=== PATIENT | female | born 1990 | race Hispanic/Latino ===

== ENCOUNTER 2018-10-22 11:42 | Inpatient (IN) | payer OTHER ==
[~2018-10-22] VITALS: Ht 157.5 cm; Wt 83.0 kg
[2018-10-22] MEDS ORDERED: LACTATED RINGERS 1000ML 1,000 ML IV SCH (12:15)
[2018-10-22] MEDS ORDERED: CEFAZOLIN SODIUM 1 GM VIAL IVP PRN (12:15)
[2018-10-22] MEDS ORDERED: CALDOLOR 800MG+NS 250ML 250 ML IV PRN (12:15)
[2018-10-22 12:24] LABS: HEMATOCRIT 36.1 % (36-48); MEAN CORPUSCULAR HEMOGLOBIN 30.1 pg (27.0-33.0); MEAN CORPUSCULAR HGB CONC 34.3 g/dL (32.0-36.0); MEAN CORPUSCULAR VOLUME 87.8 fL (79-99); PLATELET COUNT (AUTO) 211 K/uL (130-400); RED BLOOD CELL COUNT(AUTO) 4.12 MIL/uL (4.00-5.50); RED CELL DISTRIBUTION WIDTH 13.8 % (11.0-15.5); WHITE BLOOD COUNT (AUTO) 6.8 K/uL (4.8-10.8)
[2018-10-22] MEDS ORDERED: DURAMORPH PF1 MG/ML 10ML AMP IV ONE (12:46)
[2018-10-22] MEDS ORDERED: ONDANSETRON HCL 4 MG/2 ML VIAL ONE (13:13)
[2018-10-22] MEDS ORDERED: CEFAZOLIN SODIUM 1 GM VIAL IVP ONE (13:20)
[2018-10-22] MEDS ORDERED: EPINEPHRINE 1 MG/ML AMPULE ONE (13:22)
[2018-10-22] MEDS ORDERED: MIDAZOLAM HCL 1 MG/ML 2ML VIAL ONE (13:23)
[2018-10-22] MEDS ORDERED: EPHEDRINE SULFATE 50 MG/ML AMPULE ONE (13:32)
[2018-10-22] MEDS ORDERED: OXYTOCIN-LR 20 UNITS/1000 ML 1,000 ML IV PRN (13:48)
[2018-10-22] MEDS ORDERED: PROMETHAZINE HCL 25 MG/ML 1ML AMPULE IM PRN ×2 (14:00→17:30)
[2018-10-22] MEDS ORDERED: DEXTROSE 5 %-0.45 % NACL 1,000 ML IV PRN (14:00)
[2018-10-22] MEDS ORDERED: SODIUM CHLORIDE 0.9% 10 ML VIAL IVP PRN (14:00)
[2018-10-22] MEDS ORDERED: MEPERIDINE-PF 75 MG/ML SYG IM PRN (14:00)
[2018-10-22] MEDS ORDERED: ONDANSETRON HCL 4 MG/2 ML VIAL IVP PRN ×2 (17:30)
[2018-10-22] MEDS ORDERED: ONDANSETRON HCL 4 MG/2 ML 8 MG in SODIUM CHLORIDE 0.9% 50 ML IVP NR (17:30)
[2018-10-22] MEDS ORDERED: HYDROCODONE/ACETAMINOPHEN 5/325 MG TAB PO PRN ×2 (17:30)
[2018-10-22] MEDS ORDERED: EPHEDRINE SULFATE 50 MG/ML AMPULE IVP PRN (17:30)
[2018-10-22] MEDS ORDERED: MORPHINE SULFATE 2 MG/ML 1ML SYG IVP PRN (17:30)
[2018-10-22] MEDS ORDERED: NALOXONE HCL 0.4 MG/1 ML ML IVP PRN ×2 (17:30)
[2018-10-22] MEDS ORDERED: DiphenhydrAMINE HCL 50 MG/ML VIAL IVP PRN (17:30)
[2018-10-22] MEDS ORDERED: METOCLOPRAMIDE 10 MG/2 ML VIAL IVP PRN (17:30)
[2018-10-22 19:48] VITALS: BP 102/58
[2018-10-22 23:23] VITALS: BP 98/60
[2018-10-22] MEDS: CALDOLOR 800MG+NS 250ML 250 ML IV SCH (23:46)
[2018-10-23 04:00] VITALS: BP 97/55
[2018-10-23] MEDS: CALDOLOR 800MG+NS 250ML 250 ML IV SCH (07:02)
[2018-10-23 07:26] LABS: HEMATOCRIT 30.8 % (36-48); MEAN CORPUSCULAR HEMOGLOBIN 29.5 pg (27.0-33.0); MEAN CORPUSCULAR VOLUME 89.3 fL (79-99); PLATELET COUNT (AUTO) 163 K/uL (130-400); RED BLOOD CELL COUNT(AUTO) 3.45 MIL/uL (4.00-5.50); RED CELL DISTRIBUTION WIDTH 13.8 % (11.0-15.5); WHITE BLOOD COUNT (AUTO) 7.9 K/uL (4.8-10.8)
[2018-10-23 07:27] LABS: HEPATITIS Bs ANTIGEN SCREEN P Negative (Negative)
[2018-10-23 07:32] VITALS: BP 92/57
[2018-10-23] MEDS ORDERED: IBUPROFEN 600 MG TABLET PO PRN (09:30)
[2018-10-23] MEDS ORDERED: BISACODYL 10 MG SUPP.RECT RC PRN (09:30)
[2018-10-23] MEDS ORDERED: DIPH,PERTUSS(ACELL),TET VAC/PF 0.5 ML VIAL IM SCH (09:30)
[2018-10-23] MEDS ORDERED: ACETAMINOPHEN EXTRA STRENGTH 500 MG TABLET PO PRN (09:30)
[2018-10-23] MEDS ORDERED: LANOLIN 30GM OINTMENT TP PRN (09:30)
[2018-10-23] MEDS ORDERED: DOCUSATE SODIUM 100 MG CAP PO ONE (10:08)
[2018-10-23] MEDS: ACETAMINOPHEN-CODEINE 300/30MG TAB PO PRN ×2 (10:19→18:57)
[2018-10-23] MEDS: SIMETHICONE 80 MG TAB.CHEW PO PRN ×4 (10:19→21:18)
--- NOTE | 2018-10-23 10:30 | NUR ---
F/C D/C'D F/C DISCONTINUED BY NUTRITION DIRECTOR STUDENT. ACCOMPANIED BY INSTRUCTOR. TOLERATED WELL.
[2018-10-23 11:33] VITALS: BP 103/60
[2018-10-23] MEDS: IBUPROFEN 800 MG TAB PO SCH ×2 (14:57→22:10)
[2018-10-23 15:50] VITALS: BP 96/57
[2018-10-23 19:32] VITALS: BP 95/51
[2018-10-23] MEDS: DOCUSATE SODIUM 100 MG CAP PO SCH (21:19)
[2018-10-23 23:29] VITALS: BP 96/59
[2018-10-23] MEDS ORDERED: PREN-66 PO (23:38)
[2018-10-24 03:31] VITALS: BP 96/52
[2018-10-24] MEDS: IBUPROFEN 800 MG TAB PO SCH ×2 (06:11→14:39)
--- NOTE | 2018-10-24 07:25 | NUR ---
ASSESSED AND IS AAO. C/O HAVING PAIN OF 5 TO INCISION. PAIN MANAGEMENT DISCUSSED AND WAS MEDICATED WITH TYLENOL #3 AFTER ASSESSMENT. INCISION IS OPEN TO AIR WITH INSORB AND IS WELL APRROXIMATED AND NO REDNESS, DRAINAGE OR EDEMA NOTED TO SITE. 1+ EDEMA NOTED BILATERALLY TO LOWER EXTREMITIES.
[2018-10-24 07:41] VITALS: BP 111/64
[2018-10-24] MEDS: SIMETHICONE 80 MG TAB.CHEW PO PRN (08:32)
[2018-10-24] MEDS: DOCUSATE SODIUM 100 MG CAP PO SCH (08:32)
[2018-10-24] MEDS: ACETAMINOPHEN-CODEINE 300/30MG TAB PO PRN (08:33)
[2018-10-24 12:00] VITALS: BP 110/70
--- NOTE | 2018-10-24 16:40 | NUR ---
WAS TAKEN VIA W/C HOLDING BABY IN ARMS TO FAMILY VEHICLE. PATIENT STABLE AND DENIES PAIN.
== END 2018-10-24 16:40 | disposition home or self-care (01) | DRG 788 ==
LOC: OBSVTOIN 11:42 → LDH 11:42 → WSH 19:28
PROVIDERS: ADMIT Obstetrics & Gynecology; ATTEND Obstetrics & Gynecology
PROC: 10D00Z1 Extraction of Products of Conception, Low, Open Approach (ICD-10-PCS; principal; 2018-10-22 12:55)
DX: O34.211 Maternal care for low transverse scar from previous cesarean delivery (principal); O69.81X0 Labor and delivery complicated by cord around neck, without compression, not applicable or unspecified; Z53.29 Procedure and treatment not carried out because of patient's decision for other reasons; Z37.0 Single live birth; Z3A.38 38 weeks gestation of pregnancy
CPT/HCPCS: 36415; 59510; 85027; 86592; 86850; 86900; 86901; 87340; A4344; A4450; A4606; G0378; J0171; J0690; J1741; J2250; J2274; J2405; J2590; J2765; J3490; J7120